=== PATIENT | female | born 1935 | race Hispanic/Latino ===

== ENCOUNTER 2017-08-05 10:38 | Observation (INO) | payer OTHER ==
[~2017-08-05] VITALS: Ht 157.5 cm; Wt 77.1 kg
--- NOTE | 2017-08-05 10:51 | ED SYNCOPE COMPLAINT ---
History of Present Illness General Chief Complaint: Syncope and Near-Syncope Stated Complaint: SYNCOPE Source: patient Exam Limitations: language barrier Vital Signs & Intake/Output Vital Signs & Intake/Output Vital Signs Date Time Temp Pulse Resp B/P B/P Pulse O2 O2 Flow FiO2 Mean Ox Delivery Rate 08/05 1332 97.0 69 118/70 08/05 1222 97.0 70 20 124/70 100 Room Air 08/05 1140 96.2 68 20 108/56 92 08/05 1106 96.9 73 18 113/62 96 Room Air Room Air Allergies Coded Allergies: No Known Allergies (08/05/17) Triage Nurses Notes Reviewed? yes Timing: single episode today Precipitating Factors: none Loss of Consciousness: no loss of consciousness HPI: 82-year-old female comes into the emergency room for further evaluation of a febrile episode. According to the patient and the daughter she was outside cleaning snow off the car. She came inside and became profoundly weak. She had some associated shortness of breath. The [id number] reports that the patient lost consciousness completely but the patient does not recall this. The daughter reports that she pressed on her chest to do CPR after calling 911 after 1 compression the patient woke up and said out. (Adam Guajardo) Past History Medical History Any Pertinent Medical History? none Surgical History Surgical History: none Family History Hx Contributory? No (Adam Guajardo) Review of Systems Review of Systems Constitutional: Reports: no symptoms. EENTM: Reports: no symptoms. Respiratory: Reports: see HPI. Cardiovascular: Reports: see HPI. GI: Reports: no symptoms. Genitourinary: Reports: no symptoms. Musculoskeletal: Reports: no symptoms. Skin: Reports: no symptoms. Neurological/Psychological: Reports: no symptoms. All Other Systems: Reviewed and Negative (Adam Guajardo) Physical Exam Physical Exam General Appearance: well developed/nourished, alert, awake Head: atraumatic Eyes: Bilateral: normal appearance. Ears, Nose, Throat: normal ENT inspection, hearing grossly normal Neck: normal inspection Respiratory: no respiratory distress Cardiovascular: regular rate/rhythm Back: normal range of motion Extremities: normal inspection, no edema Psychiatric: awake, alert, oriented x 3 Cranial Nerves: normal hearing, normal speech, PERRL Motor/Sensory: no motor/sensory deficits Skin: intact, normal color (Flex FORRESTER,Adam) Core Measures ACS in differential dx? No CVA/TIA Diagnosis: No Sepsis Present: No Sepsis Focused Exam Completed? No (Aaron Quinteros DO) Progress Differential Diagnosis: AMI, aortic dissection, aortic valve, drug induced syncope, hyperventilation, orthostatic syncope, other valvular disease, pacemaker malfunction, pericardial tamponade, pulmonary embolus, seizure, sick sinus syndrome, subarachnoid hem., TIA/CVA, vasodepressor syncope, ventricular tach/fib Plan of Care: Orders Procedure Date/time Status Heart Healthy Diet 08/[address] in observation 08/05 1351 Active Vital Signs 08/05 1351 Active Code Status 08/05 1351 Active Patient Data 08/05 1336 Active Telemetry/Insurance Agency Sales Manager 08/05 1051 Active TROPONIN LEVEL 08/05 1051 Complete COMPREHENSIVE METABOLIC PANEL 08/05 1051 Complete CBC WITHOUT DIFFERENTIAL 08/05 1051 Complete EKG 08/05 1044 Active Laboratory Tests 08/05/17 1100: Anion Gap 13, Estimated GFR > 60, BUN/Creatinine Ratio 20.0, Glucose 110 H, Calcium 10.5 H, Total Bilirubin 0.2, AST 21, ALT 25, Alkaline Phosphatase 68, Troponin I < 0.01, Total Protein 8.1, Albumin 4.5, Globulin 3.6, Albumin/ Globulin Ratio 1.3, CBC w Diff NO MAN DIFF REQ, RBC 4.58, MCV 85.9, MCH 28.1, RDW 13.4, MPV 8.8, Gran % 68.3, Lymphocytes % 21.1, Monocytes % 9.9 H, Eosinophils % 0.4, Basophils % 0.3, Absolute Granulocytes 7.1 H, Absolute Lymphocytes 2.2, Absolute Monocytes 1.0 H, Absolute Eosinophils 0, Absolute Basophils 0, PUBS MCHC 32.7 L Diagnostic Imaging: Viewed by Me: Radiology Read. Discussed w/RAD: Radiology Read. Radiology Impression: PATIENT: WILFREDO REYNOSO PRESENT AGE: 82 PATIENT ACCOUNT NO: [id number] : 37 LOCATION: [facility], [place] ORDERING PHYSICIAN: Adam FORRESTER SERVICE DATE: 08/05/17-105 EXAM TYPE: RAD - XRY-PORTABLE CHEST XRAY EXAMINATION: XR PORTABLE CHEST CLINICAL INFORMATION: Syncope COMPARISON: None TECHNIQUE: Portable frontal view of the chest was obtained. FINDINGS: No cardiomegaly. Coarse atherosclerotic calcifications of the aortic arch. Mild tortuosity of the descending thoracic aorta. The lungs are clear without edema or focal consolidation. No pleural effusion or pneumothorax. No acute osseous abnormality. Evidence of calcific tendinitis in the right shoulder. IMPRESSION: No acute pulmonary disease. DICTATED BY: Christi De La Rosa MD DATE/TIME DICTATED:08/05/171214 PLEASURE CRAFT SAILOR:ARLETH DATE/TIME TRANSCRIBED:08/05/171214 CONFIDENTIAL, DO NOT COPY WITHOUT APPROPRIATE AUTHORIZATION. <Electronically signed in Other Vendor System> SIGNED BY: Christi De La Rosa MD 08/05/17 1222 Initial ED EKG: normal sinus rhythm, rate (68), nonspecific ST T wave chg (Adam Guajardo) Departure Departure Condition: Stable Departure Forms: Customer Survey General Discharge Information (Adam Guajardo) Departure Disposition: STILL A PATIENT Clinical Impression Primary Impression: Syncope Observation Note Spoke With: Mannie Sagastume MD Physician Advisor Notified: AARON QUINTEROS DO Place Patient In: Non-ED OBS Care Area Rationale for Observation: My rational for observation is as follows [patient needs to be placed in observation for serial troponins, telemetry monitoring, possible inpatient echocardiogram]. PA/MAINTENANCE SERVICE SUPERVISOR Co-Sign Statement Statement: ED Attending supervision documentation- [X] I saw and evaluated the patient. I have also reviewed all the pertinent lab results and diagnostic results. I agree with the findings and the plan of care as documented in the PA's/MAINTENANCE SERVICE SUPERVISOR's documentation. [] I have reviewed the ED Record and agree with the PA's/MAINTENANCE SERVICE SUPERVISOR's documentation. [] Additions or exceptions (if any) to the PAs/MAINTENANCE SERVICE SUPERVISOR's note and plan are summarized below: [] (Aaron Quinteros DO)
[2017-08-05 11:28] LABS: ABSOLUTE BASOPHIL COUNT 0 /CUMM (0.0-0.2); ABSOLUTE EOSINOPHIL COUNT 0 /CUMM (0.0-0.7); ABSOLUTE GRANULOCYTE CT 7.1 /CUMM (1.4-6.5); ABSOLUTE LYMPH COUNT 2.2 /CUMM (1.2-3.4); BASOPHIL % 0.3 % (0.0-2.0); EOSINOPHIL % 0.4 % (0-5); GRANULOCYTE % 68.3 % (42.2-75.2); HEMATOCRIT 39.3 % (37-47); MEAN CORPUSCULAR HGB 28.1 PG (27.0-31.0); MEAN CORPUSCULAR HGB CONC 32.7 G/DL (33.0-37.0); MEAN CORPUSCULAR VOLUME 85.9 FL (81.0-99.0); MEAN PLATELET VOLUME 8.8 FL (7.4-10.4); PLATELET COUNT 252 /CUMM (130-400); RBC DISTRIBUTION WIDTH 13.4 % (11.5-14.5); RED BLOOD CELL CT 4.58 /CUMM (4.20-5.40); WHITE BLOOD CELL COUNT 10.4 /CUMM (4.8-10.8)
--- NOTE | 2017-08-05 12:22 | RADIOLOGY REPORT ---
EXAMINATION: XR PORTABLE CHEST CLINICAL INFORMATION: Syncope COMPARISON: None TECHNIQUE: Portable frontal view of the chest was obtained. FINDINGS: No cardiomegaly. Coarse atherosclerotic calcifications of the aortic arch. Mild tortuosity of the descending thoracic aorta. The lungs are clear without edema or focal consolidation. No pleural effusion or pneumothorax. No acute osseous abnormality. Evidence of calcific tendinitis in the right shoulder. IMPRESSION: No acute pulmonary disease.
--- NOTE | 2017-08-05 14:28 | History & Physical ---
Zaira KATZ,Adan 08/05/17 1426: General Information and HPI MD Statement: I have seen and personally examined ANJELICA MEDEROS,WILFREDO OJEDA and documented this H&P. The patient is a 82 year old F who presented with a patient stated chief complaint of [AMS]. Source of Information: patient, family, old records Exam Limitations: no limitations History of Present Illness: Patient is a 82-year-old Micronesian-speaking female, presented with an episode of weakness and loss of consciousness. Most of the history is taken through [facility], who helped in interpretation. According to the patient. He was completely alright in the morning. She went out to remove the snow from her car. She was able to initially, but later she felt weak, so she went inside the home. She become partial responsive, so the family member holded her , and make her lie on couch, where she become unconsiouse. They called 911, who suggested to do chest compression, and after one thump, she shouted, and started responding. EMS team advised him to take the patient to hospital, so she is here. According to her, she did not have any chest pain, fever, URI, palpitation, abdominal pain. She claims that she had fall around one year ago, but do not know the reason. afterwards she is walking slowely to protect her. She also claims that she had generalized pain since last 1 week and was using over-the- counter Tylenol for it. She was taken to [facility], x-ray of the right shoulder was done, but they do not know the results. Past medical history - * GERD Personal History - Lives with family, Smoke cigar 2 /week, occasional alcohol, denies - drug abuse Family Hx - Son -Hx of stroke Allergies/Medications Allergies: Coded Allergies: No Known Allergies (08/05/17) Past History Travel History Traveled to [place] past 21 day Yes Medical History Neurological: NONE EENT: NONE Cardiovascular: "LOW BP TWICE". Respiratory: NONE Gastrointestinal: GERD Hepatic: NONE Renal: NONE Musculoskeletal: NONE Psychiatric: NONE Endocrine: NONE Blood Disorders: NONE Cancer(s): NONE MANAGER BUSINESS INFORMATION/Reproductive: NONE Surgical History Surgical History: none Past Family/Social History Psychosocial History ETOH Use: denies use Illicit Drug Use: denies illicit drug use Review of Systems Review of Systems Constitutional: Reports: no symptoms, weakness. Exam & Diagnostic Data Last 24 Hrs of Vital Signs/I&O Vital Signs Date Time Temp Pulse Resp B/P B/P Pulse O2 O2 Flow FiO2 Mean Ox Delivery Rate 08/05 1332 97.0 69 118/70 08/05 1222 97.0 70 20 124/70 100 Room Air 08/05 1140 96.2 68 20 108/56 92 08/05 1106 96.9 73 18 113/62 96 Room Air Room Air Intake & Output 08/05 1600 08/05 0800 08/05 0000 Intake Total 240 Output Total Balance 240 Intake, Oral 240 Patient 69.4 kg Weight Weight Reported by Patient Measurement Method Physical Exam General Appearance Alert, Oriented X3, Cooperative Cardiovascular Normal S1, Normal S2 Lungs Clear to Auscultation, Normal Air Movement Abdomen Soft, No Tenderness Neurological Normal Speech, Strength at 5/5 X4 Ext, Normal Tone, Sensation Intact Extremities No Clubbing, No Cyanosis, No Edema Last 24 Hrs of Labs/Zoran: Laboratory Tests 08/05/17 1100: Anion Gap 13, Estimated GFR > 60, BUN/Creatinine Ratio 20.0, Glucose 110 H, Calcium 10.5 H, Total Bilirubin 0.2, AST 21, ALT 25, Alkaline Phosphatase 68, Troponin I < 0.01, Total Protein 8.1, Albumin 4.5, Globulin 3.6, Albumin/ Globulin Ratio 1.3, CBC w Diff NO MAN DIFF REQ, RBC 4.58, MCV 85.9, MCH 28.1, RDW 13.4, MPV 8.8, Gran % 68.3, Lymphocytes % 21.1, Monocytes % 9.9 H, Eosinophils % 0.4, Basophils % 0.3, Absolute Granulocytes 7.1 H, Absolute Lymphocytes 2.2, Absolute Monocytes 1.0 H, Absolute Eosinophils 0, Absolute Basophils 0, PUBS MCHC 32.7 L Diagnostic Data EKG Results Generalized ST segments elevation Assessment/Plan Assessment: Patient is a 82-year-old Micronesian-speaking female, presented with an episode of weakness and loss of consciousness. ED course -vital signs at the time of presentation -temperature 96.9, pulse 70, respiratory rate 18, blood pressure 113/62, SPO2 96% on room air. Blood workup including CBC and BEP was within normal limits. EKG showed generalized ST segment elevation.Chest x-ray and CT scan was done which did not show any evidence of acute cardiopulmonary or intracranial pathology. It was decided to keep the patient under observation for next 24-hour for further cardiac evaluation and management. Assessment and plan - Patient is an 82-year-old Micronesian-speaking female with past medical history of GERD and generalized body aches since last 1 week, presented with an episode of generalized weakness leading to unconsciousness and after shoveling the snow. Blood workup and chemistry did not show any evidence of infection, EKG did showed generalized ST segment elevation. Troponin is negative. On examination, she did not have any chest pain which is suggestive of pericarditis. We will admit the patient to telemetry floor for further cardiac cardiac monitoring and cardiology evaluation. We will follow the orthostatic vital no any evidence of dehydration or hypotension. Syncope under evaluation. * We will admit the patient to telemetry floor. * We will do serial troponins and EKG * Will obtain cardiology opinion. * We will rule out any acute inflammatory condition - follow ESR. * Orthostatic vitals. * Patient was also complaining of numbness in the both legs. We'll check for vitamin B12 and folic acid * PT/OT Diet -heart healthy diet CODE STATUS-full code DVT prophylaxis-ALP S/heparin As Ranked By This Provider Problem List: 1. Syncope Observation Initial Note - I have personally examined WILFREDO REYNOSO on 08/05/17 at 1704. The disposition of WILFREDO REYNOSO is uncertain at this time and before a determination can be made, she requires a period of observation for the following reasons [Syncope under evaluation] Core Measures/Misc (04/28) Acute Coronary Syndrome ACS Diagnosis: No Congestive Heart Failure Congestive Heart Failure Diagnosis No Cerebrovascular Accident CVA/TIA Diagnosis: No VTE (View Protocol) VTE Risk Factors Age>40 No Mechanical VTE Prophylaxis d/t Other No VTE Pharm Prophylaxis d/t Other Sepsis (View protocol) Sepsis Present: No Mannie Sagastume MD 08/05/171816: General Information and HPI Allergies/Medications Home Med list Ibuprofen 600 MG TABLET 600 MG PO Q6P PRN PAIN Omeprazole 20 MG CAPSULE. 1 CAP PO DAILY AC gerd Attending MD Review Statement Attending Statement Attending MD Statement: examined this patient, discuss w/resident/PA/BOTTOMING ROOM INSPECTOR, agreed w/resident/PA/BOTTOMING ROOM INSPECTOR, discussed with family, reviewed EMR data (avail), reviewed images, amended to note Attending Assessment/Plan: The patient is an 82 yo female (Micronesian speaking) with h/o GERD who was brought to the [place] ED today after a syncopal event after removing show from her care. She had a sudden feeling of weakness and transiently lost consciousness. Family did "CPR" (one push and she woke up- patient w/o c/o chest pain). She denied any chest pain, dyspnea, palpitations, headache, fevers or other illness. Has a h/of a "fall" previously, however no syncope in past. EKG in ED showed some non-specific ST changes (?J-point elevation) and was read as possible pericarditis (she has no pain). Physical Exam: VS: T 97.0, P 69, R 20, BP 118/70, PO 100% RA HEENT: eyes- PERRLA, EOMI beth- slightly dry mucosa Neck: no bruits or JVD Chest: clear, no tenderness Cor: RRR nl S1, S2 w/o murm Abd: BS+, soft, NT Ext: no edema, pulses 2+ Neuro: alert & oriented (via atmospheric drier tender), non-focal exam (gait not tested by me) Labs/Test: as above Impression/Plan: #Syncope- sudden LOC as above that was transient. No rhythm changes on monitor in ED. May be due to hypoglycemia. Plan: Bring in as OBS patient to telemetry to monitor for arrhythmia. Neuro checks q4h. PT consult in morning. #Abnormal EKG- ? non-specific ST changes (no old tracing available) that may represent J-point elevation, however reading suggests possibility of pericarditis. Patient has no symptoms of such. Plan: Check ESR & troponin level. Cardiology consult- Dr. Lackey. ECHO. #GERD- has h/o this. Plan: Omeprazole as ordered. Social- chart suggests no PCP and no insurance. Will need financial counseling and case management involvement. May consider [facility] as [facility] for OP follow -up.
--- NOTE | 2017-08-05 16:17 | CT SCAN REPORT ---
EXAMINATION: CT HEAD WITHOUT CONTRAST CLINICAL INFORMATION: Fall. COMPARISON: None TECHNIQUE: Contiguous axial imaging was performed from the skull base to vertex without intravenous administration of contrast. DLP: 618.75 mGy-cm FINDINGS: There is no evidence of acute intracranial hemorrhage or territorial infarction. No abnormal mass effect or midline shift is seen. [place]amorado to white matter differentiation is well preserved. No extra-axial fluid collections are identified. There is atrophy with prominence of the ventricles and the sulci and hypodensity of the periventricular white matter due to chronic small vessel ischemic disease. There is vascular calcifications of the internal carotid arteries bilaterally. The osseous structures and soft tissues are normal. The mastoid air cells and visualized portions of the paranasal sinuses are well aerated. IMPRESSION: No acute intracranial pathology.
[2017-08-05 18:05] VITALS: BP 138/64
[2017-08-05 22:48] VITALS: BP 138/70
[2017-08-06 07:49] VITALS: BP 130/66
--- NOTE | 2017-08-06 08:19 | PN-Observation ---
See Addendum Observation Note Observation Note _ I have personally examined ANJELICA MEDEROS,WILFREDO OJEDA. her disposition is uncertain at this time. Before a determination can be made, she requires continued observation for the following reasons [syncope under evaluation]. Assessment/Plan Assessment: Patient is a 82-year-old Ghanaian-speaking female, presented with an episode of weakness and loss of consciousness. The patient under observation for next 24-hour for further cardiac evaluation and management. Assessment and plan - Patient is an 82-year-old Ghanaian-speaking female with past medical history of GERD and generalized body aches since last 1 week, presented with an episode of generalized weakness leading to unconsciousness and after shoveling the snow. Blood workup and chemistry did not show any evidence of infection, EKG did showed generalized ST segment elevation. Troponin is negative. On examination, she did not have any chest pain which is suggestive of pericarditis. We will admit the patient to telemetry floor for further cardiac cardiac monitoring and cardiology evaluation. We will follow the orthostatic vital no any evidence of dehydration or hypotension. She is noted to have an abnormal EKG consistent with possible pericarditis, however she denies any chest pain. Syncope under evaluation * Continuous telemetry and no acute overnight events reported, she remained in sinus rhythm with heart rate in 60s to 70s. * Serial troponins and EKG negative. Myocardial infarction has been ruled out * Orthostatic vitals WNL * Vitamin B12 and folic acid wnl * Patient walking independently with a steady gait * Echocardiogram pending, pt to follow up with Dr nam nuno 1 week of d/c * Pts table to be d/c today Diet -heart healthy diet DVT prophylaxis-ALP S/heparin CODE STATUS-full code Problem List: 1. Syncope Subjective Follow-up For: syncope Subjective: seen and examined. no complains. no overnight events. speeder hand used Review of Systems Constitutional: Reports: see HPI. Objective Last 24 Hrs of Vital Signs/I&O Vital Signs Date Time Temp Pulse Resp B/P B/P Pulse O2 O2 Flow FiO2 Mean Ox Delivery Rate 08/06 0749 98.2 67 16 130/66 94 Room Air 08/05 2248 99.0 76 16 138/70 93 Room Air 08/05 1805 98.6 80 16 138/64 96 Room Air 08/05 1537 98.4 71 16 148/69 96 Room Air Intake & Output 08/06 1600 08/06 0800 08/06 0000 Intake Total 200 680 Output Total Balance 200 680 Intake, Oral 200 680 Patient 170 lb Weight Physical Exam General Appearance: Alert, Oriented X3, Cooperative, No Acute Distress Lungs: Clear to Auscultation Abdomen: Normal Bowel Sounds, Soft Neurological: Normal Speech Current Medications: Current Medications Sig/Iván Start time Last Medication Dose Route Stop Time Status Admin Acetaminophen 650 MG Q6P PRN 08/05 2100 AC PO Enoxaparin Sodium 40 MG DAILY 08/05 1550 AC SC Ibuprofen 400 MG .STK-MED ONE 08/05 2134 DC PO 08/05 2135 Ibuprofen 600 MG Q6P PRN 08/05 2100 AC 08/05 PO 2137 Influenza Virus 0.5 ML ONCE ONE 08/06 0800 DC 08/06 Vaccine IM 08/06 0801 0939 Omeprazole 20 MG DAILY AC 08/05 1553 AC 08/06 PO 1121 Last 24 Hrs of Labs/Mics: Laboratory Tests 08/06/17 0626: Triglycerides Cancelled, Cholesterol Cancelled, LDL Cholesterol, Calc Cancelled, HDL Cholesterol Cancelled, Cholesterol/HDL Ratio Cancelled 08/06/17 0155: Troponin I < 0.01, Triglycerides 99, Cholesterol 162, LDL Cholesterol, Calc 90, HDL Cholesterol 53, Cholesterol/HDL Ratio 3 08/05/17 1704: Troponin I < 0.01
--- NOTE | 2017-08-06 08:48 | Patient Discharge Instructions ---
Discharge Instructions General Discharge Information You were seen/treated for: Sudden weakness and unconsiouness, we watched you in telemetry. You were treated symptomatically. Special Instructions: please f/u with PCP with in a week of discharge. You need to follow up with your doctor to get out patient echocardiogram. Diet Continue normal diet: Yes Activity Activity Self Limited: Yes Acute Coronary Syndrome Inclusion Criteria At DC or during hospital stay patient has or had the following: ACS DIAGNOSIS No Discharge Core Measures Meds if any: Prescribed or Continued at Discharge Meds if any: NOT Prescribed or Continued at Discharge Congestive Heart Failure Inclusion Criteria At DC or during hospital stay patient has or had the following: CHF DIAGNOSIS No Discharge Core Measures Meds if any: Prescribed or Continued at Discharge Meds if any: NOT Prescribed or Continued at Discharge Cerebrovascular accident Inclusion Criteria At DC or during hospital stay patient has or had the following: CVA/TIA Diagnosis No Discharge Core Measures Meds if any: Prescribed or Continued at Discharge Meds if any: NOT Prescribed or Continued at Discharge Venous thromboembolism Inclusion Criteria VTE Diagnosis No VTE Type NONE VTE Confirmed by (Test) NONE Discharge Core Measures - Per Current guidelines, there needs to be overlap - treatment for the first 5 days of Warfarin therapy. - If discharged on Warfarin prior to 5 days of - overlap therapy, the patient will need to be - assessed for post discharge needs including - *Post discharge parental anticoagulation - *Warfarin and/or parental anticoagulation education - *Follow up date to check INR post discharge At least 5 days overlap therapy as Inpatient No Meds if any: Prescribed or Continued at Discharge Note: Overlap Therapy is Warfarin and Anticoagulant Meds if any: NOT Prescribed or Continued at Discharge
[2017-08-06] MEDS ORDERED: OMEPRAZOLE20 M2 PO (09:08)
[2017-08-06] MEDS ORDERED: IBUPROFEN600 M1 PO (09:08)
--- NOTE | 2017-08-06 12:13 | Cons- Cardiology ---
General Information and HPI Consulting Request Date of Consult: 08/06/17 Requested By: Mannie Sagastume MD Reason for Consult: Syncope History of Present Illness: The patient is an 82-year-old female with no prior cardiac history who presents with syncope. The patient was feeling well until yesterday afternoon when she started feeling weak. She complained of lightheadedness and presyncope. Review assistance of her family she lay down on a sofa, and she lost consciousness. Her family called 911. He since family attempted chest compressions, however after a single chest compressions the patient shouted and began responding. EMS arrived and brought the patient to the hospital. The patient denies any chest pain, palpitations, or shortness of breath. She had a fall approximately one year ago, and she has been more careful with ambulation since that time. She was noted to have a mildly abnormal EKG. Myocardial infarction has been ruled out with negative troponin 3. She has been monitor on telemetry without any significant arrhythmias. No nausea or vomiting. No hemoptysis. No diaphoresis. Allergies/Medications Allergies: Coded Allergies: No Known Allergies (08/05/17) Home Med List: Ibuprofen 600 MG TABLET 600 MG PO Q6P PRN PAIN Omeprazole 20 MG CAPSULE.DR 1 CAP PO DAILY AC gerd Current Medications: Current Medications Sig/Iván Start time Last Medication Dose Route Stop Time Status Admin Acetaminophen 650 MG Q6P PRN 08/05 2100 AC PO Enoxaparin Sodium 40 MG DAILY 08/05 1550 AC SC Ibuprofen 400 MG .STK-MED ONE 08/054 DC PO 08/05 213 Ibuprofen 600 MG Q6P PRN 08/05 2100 AC 08/05 PO 2137 Influenza Virus 0.5 ML ONCE ONE 08/06 0800 DC 08/06 Vaccine IM 08/06 0801 0939 Omeprazole 20 MG DAILY AC 08/05 1553 AC 08/06 PO 1121 Review of Systems Review of Systems: No rash. No tremor. All other systems were reviewed, and were noted to be negative. Past History Travel History Traveled to [place] past 21 day Yes Medical History Blood Transfusion Hx: No Neurological: NONE EENT: NONE Cardiovascular: "LOW BP TWICE". 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 Pupils equal bilaterally. Conjunctiva normal. Neck: Supple with no JVD, no masses, and no thyromegaly Lungs: Clear to auscultation with normal respiratory effort Heart: RRR, S1, S2, no murmurs. No peripheral edema, 2+ pulses in the lower extremities bilaterally Abdomen: Soft, nontender, no masses. No hepatomegaly. No splenomegaly Extremities: No clubbing or cyanosis. Normal muscle strength in the upper and lower extremities Skin: Normal skin turgor with no skin ulcers or lesions noted. Neuro: Cranial nerves intact. Sensation intact Psych: Alert and oriented 3 with appropriate affect Labs/Zoran Results: Laboratory Tests 08/06 08/06 08/05 0626 0155 1704 Chemistry Troponin I (< 0.11 ng/ml) < 0.01 < 0.01 Triglycerides (<150 mg/dL) Cancelled 99 Cholesterol (<200 MG/DL) Cancelled 162 LDL Cholesterol, Calc (65 - 129 mg/dL) Cancelled 90 HDL Cholesterol (40 - 60 mg/dL) Cancelled 53 Cholesterol/HDL Ratio (0.00 - 4.23 %) Cancelled 3 08/05 1100 Chemistry Sodium (137 - 145 mmol/L) 144 Potassium (3.5 - 5.1 mmol/L) 3.5 Chloride (98 - 107 mmol/L) 104 Carbon Dioxide (22 - 30 mmol/L) 27 Anion Gap (5 - 16) 13 BUN (7 - 17 mg/dL) 14 Creatinine (0.5 - 1.0 mg/dL) 0.7 Estimated GFR (>60 ml/min) > 60 BUN/Creatinine Ratio (7 - 25 %) 20.0 Glucose (65 - 99 mg/dL) 110 H Calcium (8.4 - 10.2 mg/dL) 10.5 H Total Bilirubin (0.2 - 1.3 mg/dL) 0.2 AST (14 - 36 U/L) 21 ALT (9 - 52 U/L) 25 Alkaline Phosphatase (<127 U/L) 68 Troponin I (< 0.11 ng/ml) < 0.01 Total Protein (6.3 - 8.2 g/dL) 8.1 Albumin (3.5 - 5.0 g/dL) 4.5 Globulin (1.9 - 4.2 gm/dL) 3.6 Albumin/Globulin Ratio (1.1 - 2.2 %) 1.3 Vitamin B12 (239 - 931 pg/mL) > 1000 H Folate (2.76 - 20.0 ng/mL) 11.1 Hematology CBC w Diff NO MAN DIFF REQ WBC (4.8 - 10.8 /CUMM) 10.4 RBC (4.20 - 5.40 /CUMM) 4.58 Hgb (12.0 - 16.0 G/DL) 12.9 Hct (37 - 47 %) 39.3 MCV (81.0 - 99.0 FL) 85.9 MCH (27.0 - 31.0 PG) 28.1 RDW (11.5 - 14.5 %) 13.4 Plt Count (130 - 400 /CUMM) 252 MPV (7.4 - 10.4 FL) 8.8 Gran % (42.2 - 75.2 %) 68.3 Lymphocytes % (20.5 - 51.1 %) 21.1 Monocytes % (1.7 - 9.3 %) 9.9 H Eosinophils % (0 - 5 %) 0.4 Basophils % (0.0 - 2.0 %) 0.3 Absolute Granulocytes (1.4 - 6.5 /CUMM) 7.1 H Absolute Lymphocytes (1.2 - 3.4 /CUMM) 2.2 Absolute Monocytes (0.10 - 0.60 /CUMM) 1.0 H Absolute Eosinophils (0.0 - 0.7 /CUMM) 0 Absolute Basophils (0.0 - 0.2 /CUMM) 0 PUBS MCHC (33.0 - 37.0 G/DL) 32.7 L ESR Westergren (0 - 20 MM) 19 Diagnostic Data EKG Results EKG tracing is independently reviewed, and reveals normal sinus rhythm at [address] elevation, consistent with possible pericarditis CXR Results No cardiomegaly. Coarse atherosclerotic calcifications of the aortic arch. Mild tortuosity of the descending thoracic aorta. The lungs are clear without edema or focal consolidation. No pleural effusion or pneumothorax. No acute osseous abnormality. Evidence of calcific tendinitis in the right shoulder. Other Results Head CT: There is no evidence of acute intracranial hemorrhage or territorial infarction. No abnormal mass effect or midline shift is seen. [place] to white matter differentiation is well preserved. No extra-axial fluid collections are identified. There is atrophy with prominence of the ventricles and the sulci and hypodensity of the periventricular white matter due to chronic small vessel ischemic disease. There is vascular calcifications of the internal carotid arteries bilaterally. The osseous structures and soft tissues are normal. The mastoid air cells and visualized portions of the paranasal sinuses are well aerated. Assessment/Plan Assessment/Plan The patient is an 82-year-old female no cardiac history who presents after a syncopal episode. She has ruled out for myocardial infarction and no significant arrhythmias noted on telemetry. She is noted to have an abnormal EKG consistent with possible pericarditis, however she denies any chest pain. Recommendations: * Echocardiogram * If no significant abnormalities are seen on echocardiogram, then the patient may be discharged. * The patient is advised to call with any further symptoms, and to follow up in the office in 1 to 2 weeks. Consult Acknowledgment - Thank you for your consult request.
== END 2017-08-06 16:17 ==
LOC: ERH 10:38 → 1NO 13:51 → ERHI 13:51 → ENRESERV 17:17 → ENTRNSPT 17:30 → EDTRNSPTSTS 17:52 → 1NO 18:05 → CMPTRNSPT 18:15 → 1NO 08-06 08:19 → ENPENDDIS 08-06 13:19 → 1NO 08-06 16:17
PROVIDERS: Physician Assistant Medical; Radiology Vascular & Interventional Radiology
DX: R55 Syncope and collapse (principal); R53.1 Weakness; K21.9 Gastro-esophageal reflux disease without esophagitis; Z23 Encounter for immunization; F17.200 Nicotine dependence, unspecified, uncomplicated; Z79.899 Other long term (current) drug therapy
CPT/HCPCS: 6020; 36415; 93005; 93010; G0008; G0378; J1650

== ENCOUNTER 2018-01-28 08:22 | Emergency (ER) | payer SELFPAY ==
[~2018-01-28] VITALS: Ht 157.5 cm; Wt 63.5 kg
[~2018-01-28 08:22] MED LIST: IBUPROFEN600 M1 PO; OMEPRAZOLE20 M2 PO
--- NOTE | 2018-01-28 08:55 | ED SKIN/ALLERGY COMPLAINT ---
History of Present Illness General Chief Complaint: Fever Stated Complaint: FEVER / DIZZINESS L PAIN IN L NIPPLE Source: patient Exam Limitations: no limitations Vital Signs & Intake/Output Vital Signs & Intake/Output Vital Signs Date Time Temp Pulse Resp B/P B/P Pulse O2 O2 Flow FiO2 Mean Ox Delivery Rate 01/28 1220 97.9 70 17 152/70 99 Room Air 01/28 1058 97.6 77 18 159/72 98 Room Air 01/28 0827 97.6 83 18 165/73 98 Room Air ED Intake and Output 01/29 0000 01/28 1200 Intake Total Output Total Balance Patient 140 lb Weight Weight Reported by Patient Measurement Method Allergies Coded Allergies: No Known Allergies (08/05/17) Reconcile Medications Augmentin (Augmentin 500-125 Tablet) 500 MG-125 MG TABLET 1 TAB PO TID abscess Ibuprofen 600 MG TABLET 600 MG PO Q6P PRN PAIN Omeprazole 20 MG CAPSULE. 1 CAP PO DAILY AC gerd Triage Note: 82 YO FEMALE TO TRIAGE WITH GRANDDAUGHTER FOR EVAL OF ?ABCESS TO L NIPPLE WITH FEVERS AT HOME. TEMP 97.5 AT THIS TIME, STATES LAST DOSE OF TYLENOL WAS LAST PM. REPORTS REDNESS IS AROUND L NIPPLE FOR APPROX 5 DAYS AND HAS BEEN GETTING WORSE. Triage Nurses Notes Reviewed? yes Onset: Gradual Duration: day(s):, constant, changing over time, continues in ED, getting worse HPI: Patient presents for evaluation of worsening lump near the left nipple. Patient states that has been present for about 3 or 4 days. Beginning about 2 days ago she started having a fever. He has also felt an associated dizziness. She'll revise any other associated cold symptoms such as sore throat, dyspnea, dysuria, vomiting, diarrhea or known injury. She denies any significant past medical history and takes no medications currently. Past History Travel History Traveled to [place] past 21 day No Medical History Any Pertinent Medical History? see below for history Neurological: NONE EENT: NONE Cardiovascular: "LOW BP TWICE". Respiratory: NONE Gastrointestinal: GERD Hepatic: NONE Renal: NONE Musculoskeletal: NONE Psychiatric: NONE Endocrine: NONE Blood Disorders: NONE Cancer(s): NONE BUSINESS DEAN/Reproductive: NONE History of MRSA: No History of VRE: No History of CDIFF: No Surgical History Surgical History: none Psychosocial History What is your primary language Hungarian Tobacco Use: Never used Family History Family History, If Any: DAUGHTER Essential hypertension Hx Contributory? No Review of Systems Review of Systems Constitutional: Reports: no symptoms. EENTM: Reports: no symptoms. Respiratory: Reports: no symptoms. Cardiovascular: Reports: no symptoms. GI: Reports: no symptoms. Genitourinary: Reports: no symptoms. Musculoskeletal: Reports: no symptoms. Skin: Reports: see HPI. Neurological/Psychological: Reports: no symptoms. Hematologic/Endocrine: Reports: no symptoms. Immunologic/Allergic: Reports: no symptoms. All Other Systems: Reviewed and Negative Physical Exam Physical Exam General Appearance: SEE BELOW Comments: Gen.: Well-nourished, well-developed, no acute respiratory distress. Head: Normocephalic, atraumatic. Eyes: Normal inspection bilaterally Ears: Normal inspection bilaterally Nose: Normal inspection Throat/mouth : Moist mucosa Neck: Supple, full range of motion, no goiter Chest/breasts: Mildly erythematous, soft mass at 3 o'clock position relative to the left nipple, there is no discharge or drainage from either the nipple or the mass. Lungs: Quiet respirations Back: Normal range of motion Extremities: Normal range of motion grossly, no cyanosis clubbing or edema of the upper extremities Neurologic: Cranial nerves grossly intact, speech is clear Skin: warm and dry Psychiatric: Calm, cooperative, no apparent delusions or hallucinations Progress Differential Diagnosis: abscess/cellulitis, breast cancer, sebaceous cyst Plan of Care: Orders Procedure Date/time Status US-BREAST LEFT, COMPLETE 01/28 5988 Active Comments: 01/28/2018 11:06:38 AM I am awaiting return of patient's daughter in order to address the cystic structure seen on ultrasound. Plan discussed with daughter who returned to the emergency department. Departure Departure Disposition: HOME OR SELF CARE Condition: Stable Clinical Impression Primary Impression: Left breast abscess Referrals: Patient Has No Primary Care Dr (PCP/Family) Additional Instructions: Unasyn as prescribed. [id number] pain medication if necessary. Follow up with Dr. Carreon within 48-72 hours for reevaluation. Notify your primary care doctor of this emergency department visit and treatment plan. Return if any concerns or sudden worsening. Thank you for choosing the [facility] Emergency Department for your care. It was a pleasure to serve you today. Aaron Rod M.D. [facility] Departure Forms: Customer Survey General Discharge Information Prescriptions: Current Visit Scripts Augmentin (Augmentin 500-125 Tablet) 1 TAB PO TID #21 TAB Procedures Additional Procedures Additional Procedures: Needle aspiration of abscess Progress: Cystic mass prepared in the usual manner and anesthetized with lidocaine 1%. Good anesthesia was obtained and needle aspiration of 5 mL of purulent material performed. Patient tolerated procedure well.
--- NOTE | 2018-01-28 10:30 | ULTRASOUND REPORT ---
EXAMINATION: US BREAST, UNILATERAL LEFT DIAGNOSTIC CLINICAL INFORMATION: Lump near the left nipple. Presumptive diagnosis of left periareolar cyst. COMPARISON: None. TECHNIQUE: High-resolution grayscale sonography of the left breast was performed by a technologist with a high frequency linear transducer following a standardized protocol. Real-time assessment by the reading radiologist was also performed. FINDINGS: Corresponding to the palpable lump in the periareolar left breast 3:00, a superficial cutaneous complex thick-walled cystic masses seen, measuring 2.0 x 0.9 x 1.9 cm. With color Doppler imaging, hyperemia in the thickened wall and in the surrounding skin is seen. This finding is most consistent with an infected/inflamed sebaceous cyst or other cutaneous abscess. In the left axilla, a borderline enlarged lymph node measuring 1.3 cm is seen, demonstrating thickening cortex measuring up to 0.6 cm in thickness and demonstrating cortical vascular flow. This is likely a reactive lymph node. IMPRESSION: Palpable lump in the periareolar left breast corresponds to a complex appearing thick-walled cutaneous cystic mass, most likely an infected/inflamed sebaceous cyst or other cutaneous abscess. Reactive adenopathy in the left axilla is noted. ASSESSMENT: Left breast: ACR BI-RADS 2: Benign finding. RECOMMENDATIONS: Management of the cutaneous cystic mass as clinically appropriate. Follow-up ultrasound post treatment is suggested to document resolution of findings.
[2018-01-28 12:20] VITALS: BP 152/70
[2018-01-28] MEDS ORDERED: AUGMENTIN 500-1 EACH PO (13:07)
== END 2018-01-28 13:31 ==
LOC: ERH 08:22
DX: N61.1 Abscess of the breast and nipple (principal)
CPT/HCPCS: 76642-LT; J2001